=== PATIENT | male | born 1985 | race African-American/Black ===

== ENCOUNTER 2017-09-29 18:31 | Emergency (ER) | payer OTHER ==
[~2017-09-29] VITALS: Ht 180.3 cm; Wt 88.2 kg
[2017-09-29] MEDS ORDERED: FLUT16H NASAL (18:34)
[2017-09-29] MEDS ORDERED: D ME PO ×2 (18:34)
[2017-09-29] MEDS ORDERED: IBUP-1506 PO (18:34)
[2017-09-29 18:51] VITALS: BP 141/76
[2017-09-29] MEDS ORDERED: DEXAMETHASONE SOD PHOS 4 MG/ML 5 ML VIAL IM ONE (19:00)
[2017-09-29] MEDS ORDERED: ALBUTEROL SULFATE HFA 90 MCG/PUFF 8 GM INHALER IH ONE (19:00)
== END 2017-09-29 19:28 | disposition home or self-care (01) ==
LOC: EMS 18:33
DX: T50.995A Adverse effect of other drugs, medicaments and biological substances, initial encounter (principal); J40 Bronchitis, not specified as acute or chronic; J02.9 Acute pharyngitis, unspecified; Y92.89 Other specified places as the place of occurrence of the external cause
CPT/HCPCS: 94664; 96372; 99283; J1100; J3535